=== PATIENT | female | born 1965 | race Hispanic/Latino ===

== ENCOUNTER 2018-11-30 07:46 | Outpatient (CLI) | payer BC ==
--- NOTE | 2018-11-30 10:31 | MMO ---
Bilateral MAMMO Bilat Screen [facility]. CLINICAL HISTORY: Patient is 53 years old and is seen for screening. The patient has no family history of breast cancer. The patient has no personal history of cancer. VIEWS: The views performed were: bilateral craniocaudal with tomosynthesis and bilateral mediolateral oblique with tomosynthesis. MAMMOGRAM FINDINGS: There are scattered fibroglandular densities. There are stable benign appearing calcifications seen in both breasts. There are also vascular calcifications. There are no suspicious masses, suspicious calcifications, or new areas of architectural distortion. IMPRESSION: THERE IS NO MAMMOGRAPHIC EVIDENCE OF MALIGNANCY. A ROUTINE FOLLOW-UP MAMMOGRAM IN 1 YEAR IS RECOMMENDED. THE RESULTS OF THIS EXAM WERE SENT TO THE PATIENT. ACR BI-RADS Category 2 - Benign finding MAMMOGRAPHY NOTE: 1. A negative mammogram report should not delay a biopsy if a dominant of clinically suspicious mass is present. 2. Approximately 10% to 15% of breast cancers are not detected by mammography. 3. Adenosis and dense breasts may obscure an underlying neoplasm.
== END 2018-11-30 07:47 | disposition home or self-care (01) ==
LOC: BICMAMMO 07:46
PROVIDERS: ATTEND Family Medicine
DX: Z12.31 Encounter for screening mammogram for malignant neoplasm of breast (principal)
CPT/HCPCS: 77063; 77067

== ENCOUNTER 2019-03-12 07:12 | Outpatient (CLI) | payer BC ==
--- NOTE | 2019-03-12 07:59 | ULT ---
US Gallbladder RUQ: 03/12/2019 12:00 AM CLINICAL HISTORY: Abdominal pain. STUDY: Limited right upper quadrant ultrasound of abdomen. COMPARISON: 06/29/2015 FINDINGS: Liver: Size: Normal. Echogenicity: Normal. Contour: Smooth. Mass: None. Bile ducts: No intrahepatic or extrahepatic biliary dilatation. Common bile duct measures 7 mm. Gallbladder: Surgically absent Pancreas: Head and body appear normal; tail obscured by bowel gas. Right kidney: No pelvicalyceal dilatation. Right kidney measuring 11.6 cm in length. IMPRESSION: Unremarkable exam.
== END 2019-03-12 07:13 | disposition home or self-care (01) ==
LOC: BICULT 07:12
PROVIDERS: ATTEND Family Medicine
DX: R10.9 Unspecified abdominal pain (principal)
CPT/HCPCS: 76705

== ENCOUNTER 2020-03-04 17:04 | Emergency (ER) | payer BC, OTHER ==
[2020-03-04 18:15] LABS: #Eosinphils 0.1 thou/uL (0.0-0.7); #Lymphocytes 1.6 thou/uL (1.20-3.40); #Monocytes 0.5 thou/uL (0.11-0.59); %Basophils 0.2 % (0.0-1.0); %Eosinophils 2.4 % (0.0-10.0); %Lymphocytes 29.6 % (21.0-51.0); %Neutrophils 57.8 % (42.0-75.0); Hemoglobin 12.7 g/dL (12.0-16.0); Mean Corpuscular HGB CONC 33.6 g/dL (32.0-36.0); Mean Corpuscular Hemoglobin 31.2 pg (27.0-31.0); Mean Corpuscular Volume 92.9 fL (78.0-98.0); Mean Platelet Volume 6.6 fL (7.4-10.4); Platelet Count 517 thou/uL (130-400); RBC Distribution Width 11.2 % (11.5-14.5); Red Blood Cell (RBC) Count 4.07 mill/uL (4.20-5.40); White Blood Cell (WBC) Count 5.2 thou/uL (4.8-10.8)
--- NOTE | 2020-03-04 18:20 | RAD ---
Exam: Chest one view HISTORY:Cough. COVID pneumonia. Comparison: 02/27/2020 FINDINGS: Cardiac silhouette: Normal Aorta: Unremarkable Pulmonary vessels: Normal Costophrenic angles: Clear LUNGS: Persistent multi focal interstitial and alveolar infiltrates. Pneumothorax: None Osseous abnormalities: None IMPRESSION: Stable COVID pneumonia.
[2020-03-04 18:39] LABS: ALT (SGPT) 39 U/L (8-55); AST (SGOT) 28 U/L (5-34); Albumin 2.9 g/dL (3.5-5.0); Alkaline Phosphatase 180 U/L (40-110); Anion Gap 12 mmol/L (10-20); BUN (Urea Nitrogen) 9 mg/dL (9.8-20.1); Bilirubin, Total 0.3 mg/dL (0.2-1.2); Calc. Creatinine Clearance 0 mL/min (70-130); Calcium 8.2 mg/dL (7.8-10.44); Carbon Dioxide 26 mmol/L (22-29); Chloride 102 mmol/L (98-107); Estimated GFR-MDRD 65; Globulin 2.8 g/dL (2.4-3.5); Glucose 272 mg/dL (70-105); Potassium 3.5 mmol/L (3.5-5.1); Protein, Total 5.7 g/dL (6.0-8.3); Sodium 136 mmol/L (136-145)
[2020-03-04] MEDS ORDERED: Acetaminophen 500 MG TAB ONE (19:15)
== END 2020-03-04 20:51 | disposition home or self-care (01) ==
LOC: ERS 17:04
DX: U07.1 COVID-19 (principal); J12.89 Other viral pneumonia; E11.9 Type 2 diabetes mellitus without complications; E78.5 Hyperlipidemia, unspecified; I10 Essential (primary) hypertension; F32.9 Major depressive disorder, single episode, unspecified; Z79.899 Other long term (current) drug therapy; Z79.4 Long term (current) use of insulin
CPT/HCPCS: 36415; 71045; 80053; 83605; 84484; 85025; 85379; 93005

== ENCOUNTER 2020-06-18 10:57 | Outpatient (CLI) | payer BC ==
--- NOTE | 2020-06-18 13:48 | MMO ---
Bilateral MAMMO Bilat Screen [facility]. CLINICAL HISTORY: Patient is 55 years old and is seen for screening. The patient has no family history of breast cancer. The patient has no personal history of cancer. VIEWS: The views performed were: bilateral craniocaudal with tomosynthesis and bilateral mediolateral oblique with tomosynthesis. FILMS COMPARED: The present examination has been compared to a prior imaging study performed at [facility] on 11/30/2018. This study has been interpreted with the assistance of computer-aided detection. MAMMOGRAM FINDINGS: There are scattered fibroglandular densities. Benign calcifications are noted bilaterally. There are no suspicious masses, suspicious calcifications, or new areas of architectural distortion. IMPRESSION: THERE IS NO MAMMOGRAPHIC EVIDENCE OF MALIGNANCY. A ROUTINE FOLLOW-UP MAMMOGRAM IN 1 YEAR IS RECOMMENDED. THE RESULTS OF THIS EXAM WERE SENT TO THE PATIENT. ACR BI-RADS Category 2 - Benign finding MAMMOGRAPHY NOTE: 1. A negative mammogram report should not delay a biopsy if a dominant of clinically suspicious mass is present. 2. Approximately 10% to 15% of breast cancers are not detected by mammography. 3. Adenosis and dense breasts may obscure an underlying neoplasm. Reported by: SEAN ANDERS MD Electonically Signed: [id number]
== END 2020-06-18 10:58 | disposition home or self-care (01) ==
LOC: BICMAMMO 10:57
PROVIDERS: ATTEND Family Medicine
DX: Z12.31 Encounter for screening mammogram for malignant neoplasm of breast (principal)
CPT/HCPCS: 77063; 77067

== ENCOUNTER 2020-07-26 08:21 | Observation (INO) | payer BC ==
[2020-07-26] MEDS ORDERED: Ondansetron PF 4 MG/2 ML Vial ONE (08:36)
[2020-07-26] MEDS ORDERED: Morphine 4 MG/ML VIAL ONE (08:36)
[2020-07-26 08:51] LABS: #Eosinphils 0.2 thou/uL (0.0-0.7); #Lymphocytes 2.8 thou/uL (1.20-3.40); #Monocytes 0.7 thou/uL (0.11-0.59); #Neutrophils 5.2 thou/uL (1.40-6.50); %Basophils 0.5 % (0.0-1.0); %Eosinophils 2.7 % (0.0-10.0); %Lymphocytes 31.1 % (21.0-51.0); %Monocytes 7.6 % (0.0-10.0); %Neutrophils 58.1 % (42.0-75.0); Hemoglobin 13.3 g/dL (12.0-16.0); Mean Corpuscular HGB CONC 34.4 g/dL (32.0-36.0); Mean Corpuscular Hemoglobin 31.8 pg (27.0-31.0); Mean Corpuscular Volume 92.5 fL (78.0-98.0); Mean Platelet Volume 7.4 fL (7.4-10.4); Platelet Count 308 thou/uL (130-400); RBC Distribution Width 11.2 % (11.5-14.5); Red Blood Cell (RBC) Count 4.17 mill/uL (4.20-5.40); White Blood Cell (WBC) Count 8.9 thou/uL (4.8-10.8)
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
--- NOTE | 2020-07-26 09:00 | CT ---
CT Cervical Spine WO Con History: Trauma Comparison: None. Findings: Occipital condyles are intact. Odontoid process is intact. No acute traumatic facet joint w idening. Large peripherally calcified posterior disc bulges lower cervical spine does cause mild spinal canal narrowing. No acute fracture or malalignment. Visualized ribs are intact. Lung apices ar e clear. The spinous processes are intact. Transverse processes are intact. Impression: No acute cervical spine fracture or malalignment.
[2020-07-26] MEDS ORDERED: Iopamidol-370 76% 500 ML 1 ML ONE (09:03)
[2020-07-26 09:12] LABS: ALT (SGPT) 44 U/L (8-55); AST (SGOT) 32 U/L (5-34); Albumin 3.4 g/dL (3.5-5.0); Alkaline Phosphatase 93 U/L (40-110); Anion Gap 19 mmol/L (10-20); BUN (Urea Nitrogen) 12 mg/dL (9.8-20.1); Bilirubin, Total 0.4 mg/dL (0.2-1.2); Calc. Creatinine Clearance 0 mL/min (70-130); Calcium 9.3 mg/dL (7.8-10.44); Carbon Dioxide 20 mmol/L (22-29); Chloride 104 mmol/L (98-107); Globulin 3.5 g/dL (2.4-3.5); Glucose 106 mg/dL (70-105); Lipase 550 U/L (8-78); Potassium 3.7 mmol/L (3.5-5.1); Protein, Total 6.9 g/dL (6.0-8.3); Sodium 139 mmol/L (136-145)
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
[2020-07-26] MEDS ORDERED: Fentanyl 100 MCG/2 ML VIAL ONE (09:37)
[2020-07-26 09:57] LABS: Bilirubin Negative (Negative); Blood, Urine Trace (Negative); Clarity Clear (Clear); Glucose, Urine (Dipstick) Normal (Negative); Ketone, Urine Negative (Negative); Leukocyte 75 Leu/uL (Negative); Nitrite Negative (Negative); Protein, Urine (Dipstick) 100 mg/dL (Neg-Trace); RBC/HPF 0-3 HPF (0-3); Squamous Epithelial 0-3 HPF (0-3); Urobilinogen Normal mg/dL (Less than 2); pH, Urine 6.5 (5.0-9.0)
[2020-07-26 09:58] LABS: Bacteria/HPF 1+ HPF (None Seen)
[2020-07-26] MEDS ORDERED: HYDROcodone/Acetaminophen 5/325 mg Tablet ONE (10:05)
[2020-07-26] MEDS ORDERED: cefTRIAXone\\ROCEPHIN 2 GM VIAL ONE (11:01)
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
[2020-07-26] MEDS ORDERED: Insulin Regular 300 UNITS/3 ML VIAL SC PRN ×2 (11:54)
[2020-07-26] MEDS ORDERED: Dextrose 5% in Water 1,000 ML IV PRN (11:54)
[2020-07-26] MEDS ORDERED: Dextrose 50% Abboject 50 ML SYRINGE SLOW IVP PRN (11:54)
[2020-07-26] MEDS ORDERED: Sodium Chloride 0.9% 250 ML IV SCH (12:00)
[2020-07-26 12:28] LABS: Lactic Acid 1.9 mmol/L (0.5-2.2)
[2020-07-26 12:32] LABS: Magnesium 1.8 mg/dL (1.6-2.6)
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
[2020-07-26] MEDS ORDERED: Sodium Chloride 0.9% 1,000 ML IV SCH (14:30)
[2020-07-26] MEDS ORDERED: hydrALAZINE 20 MG/ML VIAL SLOW IVP SCH (17:15)
[2020-07-26] MEDS: Ondansetron PF 4 MG/2 ML Vial IVP PRN ×2 (17:29→23:49)
[2020-07-26] MEDS: Sodium Chloride 0.9% 1,000 ML IV SCH (17:41)
[2020-07-26 18:36] VITALS: BMI 33.8
[2020-07-26] MEDS ORDERED: Rosuvastatin 5 MG TAB PO SCH (21:00)
[2020-07-26] MEDS: Famotidine 20 MG TAB PO SCH (21:34)
[2020-07-26] MEDS: HYDROcodone/Acetaminophen 5/325 mg Tablet PO PRN (21:34)
[2020-07-27] MEDS: Sodium Chloride 0.9% 1,000 ML IV SCH ×3 (04:13→12:00)
[2020-07-27] MEDS: HYDROcodone/Acetaminophen 5/325 mg Tablet PO PRN ×2 (04:20→12:00)
[2020-07-27 05:06] LABS: SARS-CoV-2 MS2 Positive; SARS-CoV-2 N Gene Positive; SARS-CoV-2 S Gene Negative; SARS-CoV-2 by NAA DETECTED (NotDetected); SARS-CoV-2 orf1ab Positive
[2020-07-27 06:14] LABS: #Basophils 0.1 thou/uL (0.0-0.2); #Eosinphils 0.1 thou/uL (0.0-0.7); #Lymphocytes 2.2 thou/uL (1.20-3.40); #Monocytes 0.6 thou/uL (0.11-0.59); #Neutrophils 4.5 thou/uL (1.40-6.50); %Basophils 0.7 % (0.0-1.0); %Eosinophils 1.6 % (0.0-10.0); %Lymphocytes 29.7 % (21.0-51.0); %Monocytes 7.5 % (0.0-10.0); %Neutrophils 60.4 % (42.0-75.0); Hemoglobin 11.7 g/dL (12.0-16.0); Mean Corpuscular HGB CONC 34.2 g/dL (32.0-36.0); Mean Corpuscular Hemoglobin 31.6 pg (27.0-31.0); Mean Corpuscular Volume 92.5 fL (78.0-98.0); Mean Platelet Volume 7.1 fL (7.4-10.4); Platelet Count 294 thou/uL (130-400); RBC Distribution Width 11.1 % (11.5-14.5); White Blood Cell (WBC) Count 7.4 thou/uL (4.8-10.8)
[2020-07-27 06:48] LABS: ALT (SGPT) 36 U/L (8-55); AST (SGOT) 28 U/L (5-34); Alkaline Phosphatase 84 U/L (40-110); Anion Gap 13 mmol/L (10-20); BUN (Urea Nitrogen) 8 mg/dL (9.8-20.1); Bilirubin, Total 0.4 mg/dL (0.2-1.2); Calc. Creatinine Clearance 87 mL/min (70-130); Calcium 8.3 mg/dL (7.8-10.44); Carbon Dioxide 26 mmol/L (22-29); Chloride 105 mmol/L (98-107); Glucose 175 mg/dL (70-105); Potassium 3.7 mmol/L (3.5-5.1); Sodium 140 mmol/L (136-145)
--- NOTE | 2020-07-27 07:21 | ULT ---
US Gallbladder RUQ History: Pancreatitis Comparison: CT examination same day Findings: Real-time grayscale and color evaluation of the abdomen was performed right upper quadrant. Visualized aorta IVC and pancreas unremarkable. Liver measures 17 cm in length. No hepatic mass. Port al vein is patent antegrade flow. No dilatation of the common bile duct. Right kidney is without mass, hydronephrosis or abnormal calcifications. Gallbladder is absent. Impression: 1. Absent gallbladder. 2. Mild increased hepatic echotexture suggesting a component of steatosis.
[2020-07-27] MEDS: Famotidine 20 MG TAB PO SCH (08:35)
[2020-07-27] MEDS ORDERED: Losartan 25 MG TAB PO SCH (09:00)
[2020-07-27] MEDS ORDERED: cefTRIAXone\\ROCEPHIN 1 GM in Sodium Chloride 0.9% 100 ML IVPB SCH (11:00)
[2020-07-27 14:28] VITALS: TEMP 98.1
--- NOTE | 2020-07-27 14:38 | PDOC.HOSPP ---
- Subjective Encounter Date: 07/27/20 Encounter Time: 14:36 Subjective: Ms. Chuy Parikh was seen today in follow-up of acute pancreatitis. She says the abdomen pain and nausea has improved. She notes some right hip pain, but that has also improved. - Objective Vital Signs & Weight: Vital Signs (12 hours) Temp Pulse Resp BP Pulse Ox 07/27/20 14:27 98.1 F 79 20 96 07/27/20 08:50 98.5 F 76 16 173/81 H 96 07/27/20 04:30 98.4 F 77 20 146/69 H 95 Weight Weight 168 lb I&O: 07/26/20 07/27/20 07/28/20 06:59 06:59 06:59 Intake Total 1740 720 Balance 1740 720 Result Diagrams: 07/27/20 05:58 07/27/20 05:58 Additional Labs: Accuchecks 07/27/20 07/27/20 07/26/20 10:24 05:37 21:21 POC Glucose 170 H 176 H 241 H 07/26/20 16:39 POC Glucose 146 H Hospitalist ROS - Medication Medications: Active Medications Generic Name Dose Route Start Last Admin Trade Name Freq PRN Reason Stop Dose Admin Hydrocodone Bitart/Acetaminophen 1 tab 07/26/20 11:54 07/27/20 12:00 Hydrocodone/Acetaminophen 5/325 Mg Tablet PO 1 tab Q4H PRN Administration Pain Famotidine 20 mg 07/26/20 21:00 07/27/20 08:35 Famotidine 20 Mg Tab PO 20 mg BID ERMIAS Administration Ceftriaxone Sodium 1 gm/ 100 mls @ 200 mls/hr 07/27/20 11:00 07/27/20 11:59 Sodium Chloride IVPB 100 mls Q24HR ERMIAS Administration Sodium Chloride 1,000 mls @ 100 mls/hr 07/26/20 14:30 07/27/20 12:00 Normal Saline 0.9% IV Not Given .Q10H ERMIAS Insulin Human Regular 0 units 07/26/20 11:54 07/27/20 07:29 Insulin Regular 300 Units/3 Ml Vial SC 2 unit .MILD SLIDING SCALE PRN Administration Mild Correctional Scale Insulin Human Regular 0 units 07/26/20 11:54 07/26/20 21:39 Insulin Regular 300 Units/3 Ml Vial SC 2 unit .BEDTIME SLIDING SC PRN Administration Bedtime Correctional Scale Losartan Potassium 50 mg 07/27/20 09:00 07/27/20 08:35 Losartan 25 Mg Tab PO 50 mg DAILY ERMIAS Administration Ondansetron HCl 4 mg 07/26/20 16:59 07/26/20 23:49 Ondansetron Pf 4 Mg/2 Ml Vial IVP 4 mg Q6H PRN Administration Nausea/Vomiting Rosuvastatin Calcium 5 mg 07/26/20 21:00 07/26/20 21:34 Rosuvastatin 5 Mg Tab PO 5 mg HS ERMIAS Administration - Exam Eye: PERRL, anicteric sclera Heart: RRR, no murmur, no gallops, no rubs, normal peripheral pulses Respiratory: CTAB, no wheezes, no rales, no ronchi, normal chest expansion Gastrointestinal: soft (+ mild epigastric tenderness, no rebound or guarding, + BS) Extremities: no cyanosis, no edema Hosp A/P (1) Acute pancreatitis Code(s): K85.90 - ACUTE PANCREATITIS WITHOUT NECROSIS OR INFECTION, UNSP Status: Acute (2) UTI (urinary tract infection) Status: Acute (3) Hyperlipidemia Code(s): E78.5 - HYPERLIPIDEMIA, UNSPECIFIED Status: Chronic (4) DM type 2 (diabetes mellitus, type 2) Status: Chronic - Plan * Acute pancreatitis- ? etiology- but improving * Will give a trail of a solid diet, if she tolerates this she can be discharged home with close follow-up, possibly Outpatient GI evaluation * HTN- blood pressure is a bit elevated- -home medications have been re-started, and will add Hydralazine as needed * DM- blood glucose is stable
[2020-07-27] MEDS ORDERED: hydrALAZINE 25 MG TAB PO PRN (14:40)
[2020-07-27 16:53] VITALS: BP 162/91
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
== END 2020-07-27 19:06 | disposition home or self-care (01) ==
LOC: ERS 08:21 → 3SE 11:05 → T4-A 07-27 08:19
PROVIDERS: ADMIT Internal Medicine; ATTEND Internal Medicine
DX: K85.90 Acute pancreatitis without necrosis or infection, unspecified (principal); S70.01XA Contusion of right hip, initial encounter; U07.1 COVID-19; E78.5 Hyperlipidemia, unspecified; F32.9 Major depressive disorder, single episode, unspecified; N39.0 Urinary tract infection, site not specified; E11.9 Type 2 diabetes mellitus without complications; R51.9 Headache, unspecified; R11.2 Nausea with vomiting, unspecified; M54.6 Pain in thoracic spine; I10 Essential (primary) hypertension; E27.8 Other specified disorders of adrenal gland; E66.9 Obesity, unspecified; Z68.33 Body mass index [BMI] 33.0-33.9, adult; Z79.4 Long term (current) use of insulin; Z79.899 Other long term (current) drug therapy; V49.50XA Passenger injured in collision with unspecified motor vehicles in traffic accident, initial encounter
CPT/HCPCS: 36415; 36416; 70450; 71045; 71260; 72125; 72170; 74177; 76705; 80053; 80061; 81003; 81015; 83605; 83690; 83735; 85025; 87077; 87086; 87186; 87635; 93005; 96374; 96375; 96376; G0378; J0360; J0696; J1815; J2270; J2405; J3010; J3490; Q9967; U0003

== ENCOUNTER 2021-03-15 18:03 | Emergency (ER) | payer BC, OTHER | END 2021-03-15 20:37 | disposition left against medical advice (07) | LOC: ERS 18:03 | DX: Z53.21 Procedure and treatment not carried out due to patient leaving prior to being seen by health care provider (principal) ==